=== PATIENT | female | born 1970 | race Caucasian/White ===

== ENCOUNTER → 2016-05-23 | Outpatient (CLI) | payer BC ==
[~2016-05-23] MED LIST: AZURETTE1 TAB PO; CYMBALTA 60MG60 MG PO; FARXIGA10 PO; GLUCOPHAGE1000 MG PO; HUMULIN R U-500 U/ML SQ; LOTENSIN HCT 201 TA1 PO; LOVAZA1 GM PO; MOTRIN 800800 MG/TAB PO; MULTIPLE VITAMI1 CAP PO; MYCOGEN TP; NYSTATIN POWDER30 GM TOP; PRAVACHOL10 MG PO; SINGULAIR 110 MG/TAB PO; TRICOR145 MG PO; VICTOZA6 MG/ML SQ; ZYRTEC 10MG10 MG PO
== END ==
LOC: MC.RAD 09:00
DX: Z12.31 Encounter for screening mammogram for malignant neoplasm of breast (principal); Z80.3 Family history of malignant neoplasm of breast

== ENCOUNTER → 2016-05-28 | Outpatient (CLI) | payer BC | LOC: SUN.DIA | DX: E10.65 Type 1 diabetes mellitus with hyperglycemia (principal); E10.40 Type 1 diabetes mellitus with diabetic neuropathy, unspecified; E66.9 Obesity, unspecified; Z68.42 Body mass index [BMI] 45.0-49.9, adult; Z79.84 Long term (current) use of oral hypoglycemic drugs; Z79.4 Long term (current) use of insulin; Z71.3 Dietary counseling and surveillance; E78.5 Hyperlipidemia, unspecified; I10 Essential (primary) hypertension ==

== ENCOUNTER 2016-09-16 12:30 | Outpatient (RCR) | payer BC ==
[2016-09-18] MEDS ORDERED: VICTOZA6 MG/ML SQ (08:14)
[2016-09-18] MEDS ORDERED: HUMULIN R U-500 U/ML SQ (08:14)
[2016-09-18] MEDS ORDERED: GLUCOPHAGE1000 MG PO (08:15)
[2016-09-18] MEDS ORDERED: FARXIGA10 PO (08:16)
[2016-09-18] MEDS ORDERED: CYMBALTA 60MG60 MG PO (08:17)
[2016-09-18] MEDS ORDERED: PRAVACHOL10 MG PO (08:18)
[2016-09-18] MEDS ORDERED: TRICOR145 MG PO (08:18)
[2016-09-18] MEDS ORDERED: LOTENSIN HCT 201 TA1 PO (08:19)
[2016-09-18] MEDS ORDERED: AZURETTE1 TAB PO (08:20)
[2016-09-18] MEDS ORDERED: SINGULAIR 110 MG/TAB PO (08:21)
[2016-09-18] MEDS ORDERED: MYCOGEN TP (08:22)
[2016-09-18] MEDS ORDERED: NYSTATIN POWDER30 GM TOP (08:23)
[2016-09-18] MEDS ORDERED: MULTIPLE VITAMI1 CAP PO (08:24)
[2016-09-18] MEDS ORDERED: ZYRTEC 10MG10 MG PO (08:24)
[2016-09-18] MEDS ORDERED: MOTRIN 800800 MG/TAB PO (08:25)
[2016-09-18] MEDS ORDERED: LOVAZA1 GM PO (11:22)
== END 2016-10-15 11:12 | disposition still patient (30) ==
LOC: WSPT 12:30
DX: M51.16 Intervertebral disc disorders with radiculopathy, lumbar region (principal)

== ENCOUNTER 2016-09-18 07:15 | Day surgery (SDC) | payer BC ==
[~2016-09-18] VITALS: Ht 160 cm; Wt 122.7 kg
[2016-09-18 07:42] VITALS: BP 115/56; PULSE 91; TEMP 97.1
[2016-09-18 07:52] LABS: HEMATOCRIT 44.1 % (37.0-47.0); HEMOGLOBIN 14.3 g/dl (12.5-16.0); MEAN CELL VOLUME 87 fl (80.0-100.0); MEAN CORPUSCULAR HEMOGLOBIN 28 pg (27.0-31.0); MEAN CORPUSCULAR HGB CONC 32 g/dl (33.0-37.0); MEAN PLATELET VOLUME 8.5 fl (7.4-10.4); PLATELET COUNT 340 K/mm3 (130-400)
[2016-09-18] MEDS ORDERED: VICTOZA6 MG/ML SQ (08:14)
[2016-09-18] MEDS ORDERED: HUMULIN R U-500 U/ML SQ (08:14)
[2016-09-18] MEDS ORDERED: GLUCOPHAGE1000 MG PO (08:15)
[2016-09-18] MEDS ORDERED: FARXIGA10 PO (08:16)
[2016-09-18] MEDS ORDERED: CYMBALTA 60MG60 MG PO (08:17)
[2016-09-18] MEDS ORDERED: PRAVACHOL10 MG PO (08:18)
[2016-09-18] MEDS ORDERED: TRICOR145 MG PO (08:18)
[2016-09-18] MEDS ORDERED: LOTENSIN HCT 201 TA1 PO (08:19)
[2016-09-18] MEDS ORDERED: AZURETTE1 TAB PO (08:20)
[2016-09-18] MEDS ORDERED: SINGULAIR 110 MG/TAB PO (08:21)
[2016-09-18] MEDS ORDERED: MYCOGEN TP (08:22)
[2016-09-18] MEDS ORDERED: NYSTATIN POWDER30 GM TOP (08:23)
[2016-09-18 08:24] LABS: CALCIUM 9.7 mg/dL (8.4-10.2); CREATININE, serum 0.75 mg/dL (0.52-1.25); POTASSIUM 4.1 mmol/L (3.4-5.0)
[2016-09-18] MEDS ORDERED: MULTIPLE VITAMI1 CAP PO (08:24)
[2016-09-18] MEDS ORDERED: ZYRTEC 10MG10 MG PO (08:24)
[2016-09-18] MEDS ORDERED: MOTRIN 800800 MG/TAB PO (08:25)
[2016-09-18 08:52] LABS: PROTHROMBIN TIME 10.8 SECONDS (9.7-12.8)
[2016-09-18 09:16] VITALS: BP 137/76; PULSE 99
[2016-09-18 10:35] VITALS: BP 124/73; PULSE 105
[2016-09-18 11:05] VITALS: BP 130/71; PULSE 101
[2016-09-18] MEDS ORDERED: LOVAZA1 GM PO (11:22)
[2016-09-18 11:35] VITALS: BP 99/74; PULSE 91
== END 2016-09-18 12:45 | disposition home or self-care (01) ==
LOC: COL.CAR 07:15
PROVIDERS: Internal Medicine Cardiovascular Disease
DX: I25.10 Atherosclerotic heart disease of native coronary artery without angina pectoris (principal); R94.39 Abnormal result of other cardiovascular function study; M51.36 Other intervertebral disc degeneration, lumbar region; E11.43 Type 2 diabetes mellitus with diabetic autonomic (poly)neuropathy; K31.84 Gastroparesis; E78.2 Mixed hyperlipidemia; E28.2 Polycystic ovarian syndrome; G47.30 Sleep apnea, unspecified; J45.909 Unspecified asthma, uncomplicated; I10 Essential (primary) hypertension; Z79.899 Other long term (current) drug therapy; Z79.4 Long term (current) use of insulin; E11.40 Type 2 diabetes mellitus with diabetic neuropathy, unspecified; Z79.84 Long term (current) use of oral hypoglycemic drugs; F32.9 Major depressive disorder, single episode, unspecified; E66.01 Morbid (severe) obesity due to excess calories; E11.319 Type 2 diabetes mellitus with unspecified diabetic retinopathy without macular edema
CPT/HCPCS: C1769; C1887; C1894; J1644; J2250; J3010; Q9967

== ENCOUNTER → 2016-11-26 | Outpatient (CLI) | payer BC | LOC: SUN.DIA 14:42 | DX: E11.40 Type 2 diabetes mellitus with diabetic neuropathy, unspecified (principal); E11.319 Type 2 diabetes mellitus with unspecified diabetic retinopathy without macular edema; Z79.4 Long term (current) use of insulin; E78.5 Hyperlipidemia, unspecified; I10 Essential (primary) hypertension; E66.9 Obesity, unspecified; Z68.42 Body mass index [BMI] 45.0-49.9, adult; Z71.3 Dietary counseling and surveillance ==

== ENCOUNTER → 2017-05-27 | Outpatient (CLI) | payer BC | LOC: SUN.DIA 16:01 | DX: E11.40 Type 2 diabetes mellitus with diabetic neuropathy, unspecified (principal); E11.319 Type 2 diabetes mellitus with unspecified diabetic retinopathy without macular edema; Z79.4 Long term (current) use of insulin; E78.5 Hyperlipidemia, unspecified; I10 Essential (primary) hypertension; E66.9 Obesity, unspecified; Z68.42 Body mass index [BMI] 45.0-49.9, adult; Z71.3 Dietary counseling and surveillance | CPT/HCPCS: G0108 ==

== ENCOUNTER 2017-06-30 15:26 | Inpatient (IN) | payer BC ==
[~2017-06-30] VITALS: Ht 160 cm; Wt 113.9 kg
[2017-06-30] VITALS (243 sets, daily range): BP systolic 131–143; BP diastolic 59–84; PULSE 108–118; TEMP 97.9–99.2; O2SAT 95–100
[2017-06-30 16:21] LABS: BASO % 0.3 % (0.0-2.0); EOS % 0.1 % (0-4.0); GRAN # 9.9 (1.4-6.5); GRAN % 82.6 % (42.2-75.2); HEMATOCRIT 47.9 % (37.0-47.0); HEMOGLOBIN 15.5 g/dl (12.5-16.0); LYMPH # 1.5 (1.2-3.4); LYMPH % 12.3 % (20.0-51.0); MEAN CELL VOLUME 89 fl (80.0-100.0); MEAN CORPUSCULAR HEMOGLOBIN 29 pg (27.0-31.0); MEAN CORPUSCULAR HGB CONC 32 g/dl (33.0-37.0); MEAN PLATELET VOLUME 8.5 fl (7.4-10.4); MONO # 0.5 (0.1-0.6); MONO % 4.1 % (1.7-9.3); PLATELET COUNT 336 K/mm3 (130-400); REDCELL DISTRIBUTION WIDTH-CV 14.3 % (11.5-14.5)
[2017-06-30 16:37] LABS: ALANINE AMINOTRANSFERASE 46 U/L (9-52); ALBUMIN 4.9 gm/dL (3.5-5.0); ALKALINE PHOSPHATASE 79 U/L (50-136); ANION GAP 30 mmol/L (7-16); AST,SGOT 32 U/L (15-37); BILIRUBIN,TOTAL 0.6 mg/dL (0.0-1.0); BLOOD UREA NITROGEN 17 mg/dL (7-17); CALCIUM 11.3 mg/dL (8.4-10.2); CARBON DIOXIDE 15 mmol/L (22-30); CHLORIDE 94 mmol/L (98-107); GLUCOSE 385 mg/dL (74-106); POTASSIUM 4.9 mmol/L (3.4-5.0); SODIUM 139 mmol/L (137-145); TOTAL PROTEIN 9.1 gm/dL (6.4-8.2)
[2017-06-30 16:38] LABS: ACETONE,SERUM MODERATE
[2017-06-30 17:02] LABS: MAGNESIUM 1.7 mg/dL (1.6-2.3); PHOSPHOROUS 5.7 mg/dL (2.5-4.5)
[2017-06-30 17:31] LABS: COLLECTION METHOD CLEAN CATCH
[2017-06-30 17:43] LABS: MUCOUS Present /lpf; PH 5 (5-8); SQUAMOUS EPITHELIAL 0-2 /hpf; URINE APPEARANCE Hazy; URINE BACTERIA None Seen /hpf; URINE BILIRUBIN Negative (NEGATIVE); URINE BLOOD Negative (NEGATIVE); URINE COLOR Yellow; URINE GLUCOSE 3+ (NEGATIVE); URINE KETONE 2+ (NEGATIVE); URINE LEUKOCYTE ESTERASE Negative (NEGATIVE); URINE NITRATE Negative (NEGATIVE); URINE PROTEIN(semi-quant) 1+ (NEGATIVE); URINE RBC 0-2 /hpf; URINE UROBILINOGEN Negative (NEGATIVE)
[2017-06-30] MEDS ORDERED: [UNRECOGNIZED DRUG - OTHER] SQ (19:02)
[2017-06-30] MEDS ORDERED: TRULICITY1.5 MG/0.5 SQ (19:03)
[2017-06-30] MEDS ORDERED: GLUCOPHAGE XR500 M1 PO (19:04)
[2017-06-30 19:49] LABS: CALCIUM 10.2 mg/dL (8.4-10.2); CREATININE, serum 0.86 mg/dL (0.52-1.25); POTASSIUM 4.3 mmol/L (3.4-5.0)
[2017-06-30 21:43] LABS: CALCIUM 9.1 mg/dL (8.4-10.2); CREATININE, serum 0.68 mg/dL (0.52-1.25)
[2017-06-30 23:33] LABS: CALCIUM 8.8 mg/dL (8.4-10.2); CREATININE, serum 0.67 mg/dL (0.52-1.25)
[2017-07-01] VITALS (700 sets, daily range): BP systolic 127–133; BP diastolic 69–88; PULSE 92–104; TEMP 97.5–98.5; O2SAT 83–100
[2017-07-01 02:19] LABS: CALCIUM 8.5 mg/dL (8.4-10.2); CREATININE, serum 0.61 mg/dL (0.52-1.25); POTASSIUM 3.8 mmol/L (3.4-5.0)
[2017-07-01 04:28] LABS: CALCIUM 8.2 mg/dL (8.4-10.2); CREATININE, serum 0.57 mg/dL (0.52-1.25); POTASSIUM 3.6 mmol/L (3.4-5.0)
[2017-07-01 06:22] LABS: CALCIUM 8.1 mg/dL (8.4-10.2); CREATININE, serum 0.61 mg/dL (0.52-1.25); POTASSIUM 3.9 mmol/L (3.4-5.0)
[2017-07-01 08:25] LABS: CALCIUM 8.1 mg/dL (8.4-10.2); CREATININE, serum 0.61 mg/dL (0.52-1.25); POTASSIUM 3.7 mmol/L (3.4-5.0)
[2017-07-01 14:23] LABS: CALCIUM 8.4 mg/dL (8.4-10.2); CREATININE, serum 0.6 mg/dL (0.52-1.25); MAGNESIUM 1.8 mg/dL (1.6-2.3); POTASSIUM 4.1 mmol/L (3.4-5.0)
[2017-07-01] MEDS ORDERED: VICTOZA6 MG/ML SQ (15:09)
[2017-07-01] MEDS ORDERED: LOTENSIN HCT 201 TA1 PO (15:13)
== END 2017-07-01 17:45 | disposition home or self-care (01) | DRG 638 ==
LOC: COL.ER 15:26 → ICU 17:06
PROVIDERS: Emergency Medicine; Internal Medicine
DX: E11.10 Type 2 diabetes mellitus with ketoacidosis without coma (principal); Z68.42 Body mass index [BMI] 45.0-49.9, adult; Z79.4 Long term (current) use of insulin; E11.319 Type 2 diabetes mellitus with unspecified diabetic retinopathy without macular edema; E11.43 Type 2 diabetes mellitus with diabetic autonomic (poly)neuropathy; K31.84 Gastroparesis; I25.10 Atherosclerotic heart disease of native coronary artery without angina pectoris; E66.01 Morbid (severe) obesity due to excess calories
CPT/HCPCS: 99222-AI; 99239; J0780; J1650; J1815; J2405; J2765; J3475; J3480; J7030

== ENCOUNTER → 2017-07-09 | Outpatient (CLI) | payer BC ==
[~2017-07-09] MED LIST changes: +GLUCOPHAGE XR500 M1 PO; +TRULICITY1.5 MG/0.5 SQ; +[UNRECOGNIZED DRUG - OTHER] SQ
== END ==
LOC: MC.RAD 13:36
DX: Z12.31 Encounter for screening mammogram for malignant neoplasm of breast (principal)

== ENCOUNTER → 2017-11-25 | Outpatient (CLI) | payer BC | LOC: SUN.DIA 16:08 | DX: E10.9 Type 1 diabetes mellitus without complications (principal); Z79.4 Long term (current) use of insulin; E78.5 Hyperlipidemia, unspecified; I10 Essential (primary) hypertension; E10.40 Type 1 diabetes mellitus with diabetic neuropathy, unspecified; E66.9 Obesity, unspecified; E10.319 Type 1 diabetes mellitus with unspecified diabetic retinopathy without macular edema | CPT/HCPCS: G0108 ==

== ENCOUNTER → 2018-05-28 | Outpatient (CLI) | payer BC | LOC: SUN.DIA 15:45 | DX: E10.9 Type 1 diabetes mellitus without complications (principal); Z79.4 Long term (current) use of insulin; E78.5 Hyperlipidemia, unspecified; I10 Essential (primary) hypertension; E11.40 Type 2 diabetes mellitus with diabetic neuropathy, unspecified; E66.9 Obesity, unspecified; E10.319 Type 1 diabetes mellitus with unspecified diabetic retinopathy without macular edema | CPT/HCPCS: G0108 ==

== ENCOUNTER → 2018-08-13 | Outpatient (CLI) | payer BC | LOC: MC.RAD 10:45 | DX: Z12.31 Encounter for screening mammogram for malignant neoplasm of breast (principal) ==

== ENCOUNTER → 2019-02-02 | Outpatient (CLI) | payer BC | LOC: COL.RAD 07:28 | DX: I67.82 Cerebral ischemia (principal); J32.0 Chronic maxillary sinusitis; Z86.39 Personal history of other endocrine, nutritional and metabolic disease | CPT/HCPCS: A9585 ==

== ENCOUNTER 2023-05-21 08:11 | Day surgery (SDC) | payer BC ==
[~2023-05-21] VITALS: Ht 160 cm; Wt 108.5 kg
[~2023-05-21 08:11] MED LIST changes: +LR 1,000 ML IV SCH; +Ondansetron 4 MG/2 ML VIAL IV PRN
[2023-05-21 08:52] VITALS: BP 161/83; PULSE 93; TEMP 97.2
[2023-05-21] MEDS ORDERED: Lidocaine PF 2% (20 MG/ML) 5 ML VIAL ONE (08:57)
[2023-05-21] MEDS ORDERED: ZOFRAN8 MG PO (09:11)
[2023-05-21] MEDS ORDERED: TRIAMCINOLONE AC0.13 TOP (09:12)
[2023-05-21] MEDS ORDERED: ASTELIN NASAL S34 ML NS (09:13)
[2023-05-21] MEDS ORDERED: VENTOLIN0.09 MG IH (09:14)
[2023-05-21] MEDS ORDERED: ATARAX 25MG25 MG/TAB PO (09:15)
[2023-05-21] MEDS ORDERED: BRINTELLIX20 (09:16)
[2023-05-21] MEDS ORDERED: WELLBUTRIN XL300 M1 PO (09:16)
[2023-05-21] MEDS ORDERED: ISIBLOOM 28 DA1 EACH PO (09:17)
[2023-05-21] MEDS ORDERED: NOVOLOG FLEX100 U/ML SQ (09:19)
[2023-05-21] MEDS ORDERED: TRESIBA FL200 UNIT/1 SQ (09:20)
[2023-05-21] MEDS ORDERED: LOTENSIN 1010 MG/TAB PO (09:26)
[2023-05-21] MEDS ORDERED: NORVASC 5MG5 MG/TAB PO (09:27)
[2023-05-21] MEDS ORDERED: MOUNJARO12.5 MG/0. SQ (09:28)
[2023-05-21] MEDS ORDERED: STARLIX PO (09:30)
[2023-05-21] MEDS ORDERED: ACTOS 15MG TAB15 MG PO (09:31)
[2023-05-21] MEDS ORDERED: NYSTATIN POWDER15 GM TOP (09:32)
[2023-05-21] MEDS ORDERED: EPA FISH OIL1 SGL PO (09:33)
[2023-05-21] MEDS ORDERED: FLOVENT 220MCG7.9 GM IH (09:33)
[2023-05-21] MEDS ORDERED: RHINOCORT0.032 MG/1 NS (09:34)
[2023-05-21] MEDS ORDERED: AZELAIC ACID 15% TOP (09:36)
[2023-05-21] MEDS ORDERED: MASON NATURAL2000 IU PO (09:37)
[2023-05-21] MEDS ORDERED: PYRIDIUM200 M1 PO (09:38)
[2023-05-21] MEDS ORDERED: MOTRIN 600600 MG/TAB PO (09:38)
[2023-05-21] MEDS ORDERED: ANTACID500 M1 (09:39)
[2023-05-21] MEDS ORDERED: ASPIRIN 81M81 MG/TA2 PO (09:39)
[2023-05-21] MEDS ORDERED: PEPCID 20MG TAB20 MG PO (09:40)
[2023-05-21] MEDS ORDERED: PHENERGAN 25 TA25 MG PO (09:41)
[2023-05-21] MEDS ORDERED: MUCINEX DM 60 M1 TER PO (09:42)
[2023-05-21] MEDS ORDERED: VISINE TEARS 0.30 ML OU (09:43)
[2023-05-21 09:55] VITALS: BP 117/61; PULSE 94; TEMP 97.9
[2023-05-21 10:10] VITALS: BP 118/64; PULSE 88
[2023-05-21 10:25] VITALS: BP 121/64; PULSE 87
[2023-05-21 10:40] VITALS: BP 126/68; PULSE 79
--- NOTE | 2023-05-21 15:51 | NUR ---
[id number]: PT TO [facility] 3 FROM ENDO S/P COLONOSCOPY WITH POLYPECTOMY A&O, PLACED ON MONITOR, VSS ON RA RECEIVED REPORT AND ASSUMED CARE OF PT FROM FRANCHESCA SANTACRUZ SPOUSE BROUGHT TO BEDSIDE PROVIDED FOOD/FLUIDS, TOLERATING WELL DR CASTAÑEDA IN TO SPEAK WITH PT/FAMILY PT HAS REMAINED A&O, NAD, VSS ON RA, TOLERATING PO, IS WITHOUT SIGNIFICANT COMPLAINT, WITH STEADY GAIT THRU OUT STAY IV D/C'D. D/C INSTRUCTIONS, ANY FOLLOW UP REVIEWED AND HANDED TO PT. ALL QUESTIONS AND CONCERNS ADDRESSED TO PT SATISFACTION. TAKEN TO EXIT VIA W/C WITH ALL BELONGINGS AND PAPERWORK IN HAND, ASSISTED INTO PASSENGER SEAT OF POV. SPOUSE TO DRIVE HOME.
== END 2023-05-21 11:10 | disposition home or self-care (01) ==
LOC: SDCO 08:11
DX: Z12.11 Encounter for screening for malignant neoplasm of colon (principal); D12.4 Benign neoplasm of descending colon
CPT/HCPCS: J2704; J7120